=== PATIENT | male | born 1990 | race Caucasian/White ===

== ENCOUNTER 2017-10-06 01:50 | Emergency (ER) | payer OTHER ==
[~2017-10-06] VITALS: Ht 180.3 cm; Wt 90.7 kg
[2017-10-06] MEDS ORDERED: ZOLOFT50 MG PO (02:01)
[2017-10-06] MEDS ORDERED: ANAPROX DS550 MG PO (03:54)
[2017-10-06] MEDS ORDERED: Orphenadrine C100 MG PO (03:54)
== END 2017-10-06 04:59 | disposition home or self-care (01) ==
LOC: ED 01:50
DX: S16.1XXA Strain of muscle, fascia and tendon at neck level, initial encounter (principal); S80.11XA Contusion of right lower leg, initial encounter; R51 Headache; V43.52XA Car driver injured in collision with other type car in traffic accident, initial encounter; Z79.899 Other long term (current) drug therapy; Y93.89 Activity, other specified; Y92.413 State road as the place of occurrence of the external cause; Y99.8 Other external cause status